=== PATIENT | male | born 1965 | race Caucasian/White ===

== ENCOUNTER 2019-07-01 20:30 | Emergency (ER) | payer BC ==
[2019-07-01 21:19] LABS: ABS Eosinophils 0.1 10^3/ul (0-0.6); ABS Lymphocytes 1.2 10^3/ul (1.0-4.8); ABS Monocytes 0.6 10^3/ul (0-0.8); ABS Neutrophils 3.4 10^3/ul (1.5-7.7); Eosinophil % 1.4 %; Hematocrit 47 % (42-52); Hemoglobin 16.6 g/dL (14.0-18.0); Lymphocyte % 22.4 %; Mean Corpuscular HGB Conc 35 g/dL (31-36); Mean Corpuscular Hemoglobin 32 pg (27-31); Mean Corpuscular Volume 91 fL (80-94); Mean Platelet Volume 7.7 fL (7.4-10.4); Nucleated Red Blood Cells % 0.1; Platelet Count 186 10^3/uL (150-450); Red Blood Count 5.17 10^6 /uL (4.18-5.48); Red Cell Distribution Width 13 % (10-15); White Blood Count 5.3 10^3/uL (3.5-10.8)
[2019-07-01 21:28] LABS: INR 0.89 (0.82-1.09)
[2019-07-01 21:37] LABS: Albumin 4.9 g/dL (3.2-5.2); BUN/Creatinine Ratio 14.6 (8-20); Calcium 9.9 mg/dL (8.6-10.3); EGFR African American 99.1 (>60); EGFR Non-African American 81.9 (>60); Globulin 2.5 g/dL (2-4); Potassium 4.1 mmol/L (3.5-5.0); Total Bilirubin 0.5 mg/dL (0.2-1.0); Total Protein 7.4 g/dL (6.4-8.9)
[2019-07-02 01:50] VITALS: BP 130/86
--- NOTE | 2019-07-02 02:01 | ED ---
HPI Chest Pain - HPI Summary HPI Summary: Patient complains of intermittent chest pressure on left side 1 week. States symptoms do not feel like pain. Chest pressure is intermittent, not related to exertion, random onset, feels like needles. Denies diaphoresis, N/V, SOB, cough , sore throat, trauma, abdominal pain, change in urine, change in BM. Medical history is none. Negative family cardiac history. Nonsmoker. Denies recreational drug use. 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 Onset/Duration: Started Days Ago Timing: Intermittent, Lasting Minutes Initial Severity: Mild Current Severity: None Pain Intensity: 0 Pain Scale Used: 0-10 Numeric Chest Pain Location: Left Anterior Character: Pressure/Squeezing Aggravating Factor(s): Other: - random Alleviating Factor(s): Spontaneous Resolution Associated Signs and Symptoms: Positive: Chest Pain - Risk Factors Pulmonary Embolism Risk Factors: Negative - Allergy/Home Medications Allergies/Adverse Reactions: Allergies Allergy/AdvReac Type Severity Reaction Status Date / Time No Known Allergies Allergy Verified 07/01/19 20:39 Home Medications: Home Medications Ginkgo Biloba [Ginkgo Biloba Extract] 40 mg PO DAILY 09/09/17 [History Confirmed 09/25/17] Glucosamine Sulfate Dipot Chlr [Gnp Glucosamine Maximum S] 1,000 mg PO DAILY [History Confirmed 09/25/17] [place]-3 Fatty Acids/Fish Oil [Fish Oil 1,000 mg Capsule] 1 each PO DAILY [History Confirmed 09/25/17] Multivit-Min/FA/Lycopen/Lutein [Men 50 Plus Multivitamin Tab] 1 tab PO DAILY [History Confirmed 10/04/17] Vitamin E CAP* 800 unit PO DAILY 10/04/17 [History Confirmed 10/04/17] PMH/Surg Hx/FS Hx/Imm Hx Endocrine/Hematology History: Denies: Hx Anticoagulant Therapy Cardiovascular History: Denies: Hx Pacemaker/ICD Respiratory History: Denies: Hx Chronic Obstructive Pulmonary Disease (COPD) History: Denies: Hx Dialysis Sensory History: Denies: Hx Eye Prosthesis Opthamlomology History: Denies: Hx Legally Blind EENT History: Denies: Hx Deafness Infectious Disease History: No Infectious Disease History: Denies: Traveled Outside the [place] in Last 30 Days - Family History Known Family History: Positive: Non-Contributory - Social History Alcohol Use: Daily Alcohol Amount: 1-2 beers Substance Use Type: Reports: None Smoking Status (MU): Never Smoked Tobacco Review of Systems Constitutional: Negative Eyes: Negative ENT: Negative Positive: Chest Pain Respiratory: Negative Gastrointestinal: Negative Genitourinary: Negative Musculoskeletal: Negative Skin: Negative Neurological/Mental Status: Negative Psychological: Normal All Other Systems Reviewed And Are Negative: Yes Physical Exam - Summary Physical Exam Summary: Chest pain nonreproducible. Lung sounds clear to auscultation bilaterally.RRR. Abdomen soft nontender. No peripheral edema. Triage Information Reviewed: Yes Vital Signs On Initial Exam: Initial Vitals Temp Pulse Resp BP Pulse Ox 98.8 F 72 18 176/102 99 07/01/19 20:37 07/01/19 20:37 07/01/19 20:37 07/01/19 20:37 07/01/19 20:37 Vital Signs Reviewed: Yes Appearance: Positive: Well-Appearing Head/Face: Positive: Normal Head/Face Inspection Eyes: Positive: Normal Neck: Positive: Supple Respiratory/Lung Sounds: Positive: Clear to Auscultation Cardiovascular: Positive: Normal Abdomen Description: Positive: Nontender Musculoskeletal: Positive: Normal Neurological: Positive: Normal Psychiatric: Positive: Normal AVPU Assessment: Alert - Fadumo Coma Scale Best Eye Response: 4 - Spontaneous Best Motor Response: 6 - Obeys Commands Best Verbal Response: 5 - Oriented Coma Scale Total: 15 Procedures - Sedation Patient Received Moderate/Deep Sedation with Procedure: No Diagnostics - Vital Signs Vital Signs Temp Pulse Resp BP Pulse Ox 07/02/19 01:45 57 12 130/86 97 07/02/19 01:17 54 16 132/94 100 07/02/19 01:00 52 11 100 07/02/19 00:45 52 17 146/93 100 07/02/19 00:31 18 07/02/19 00:21 16 07/02/19 00:15 158/108 07/01/19 22:48 98.5 F 60 18 125/88 97 07/01/19 20:37 98.8 F 72 18 176/102 99 - Laboratory Lab Results: Lab Results 07/01/19 07/01/19 07/01/19 Range/Units 21:08 21:08 21:08 WBC 5.3 (3.5-10.8) 10^3/uL RBC 5.17 (4.18-5.48) 10^6 /uL Hgb 16.6 (14.0-18.0) g/dL Hct 47 (42-52) % MCV 91 (80-94) fL MCH 32 H (27-31) pg MCHC 35 (31-36) g/dL RDW 13 (10-15) % Plt Count 186 (150-450) 10^3/uL MPV 7.7 (7.4-10.4) fL Neut % (Auto) 63.5 % Lymph % (Auto) 22.4 % [place] % (Auto) 11.8 % Eos % (Auto) 1.4 % Baso % (Auto) 0.9 % Absolute Neuts (auto) 3.4 (1.5-7.7) 10^3/ul Absolute Lymphs (auto) 1.2 (1.0-4.8) 10^3/ul Absolute Monos (auto) 0.6 (0-0.8) 10^3/ul Absolute Eos (auto) 0.1 (0-0.6) 10^3/ul Absolute Basos (auto) 0.0 (0-0.2) 10^3/ul Absolute Nucleated RBC 0.0 10^3/ul Nucleated RBC % 0.1 INR (Anticoag Therapy) 0.89 (0.82-1.09) Sodium 137 (135-145) mmol/L Potassium 4.1 (3.5-5.0) mmol/L Chloride 101 (101-111) mmol/L Carbon Dioxide 28 (22-32) mmol/L Anion Gap 8 (2-11) mmol/L BUN 14 (6-24) mg/dL Creatinine 0.96 (0.67-1.17) mg/dL Est GFR ( Amer) 99.1 (>60) Est GFR (Non-Af Amer) 81.9 (>60) BUN/Creatinine Ratio 14.6 (8-20) Glucose 75 (70-100) mg/dL Calcium 9.9 (8.6-10.3) mg/dL Total Bilirubin 0.50 (0.2-1.0) mg/dL AST 37 (13-39) U/L ALT 34 (7-52) U/L Alkaline Phosphatase 72 (34-104) U/L Troponin I 0.00 (<0.03) ng/mL Total Protein 7.4 (6.4-8.9) g/dL Albumin 4.9 (3.2-5.2) g/dL Globulin 2.5 (2-4) g/dL Albumin/Globulin Ratio 2.0 (1-3) 07/02/19 Range/Units 01:17 WBC (3.5-10.8) 10^3/uL RBC (4.18-5.48) 10^6 /uL Hgb (14.0-18.0) g/dL Hct (42-52) % MCV (80-94) fL MCH (27-31) pg MCHC (31-36) g/dL RDW (10-15) % Plt Count (150-450) 10^3/uL MPV (7.4-10.4) fL Neut % (Auto) % Lymph % (Auto) % [place] % (Auto) % Eos % (Auto) % Baso % (Auto) % Absolute Neuts (auto) (1.5-7.7) 10^3/ul Absolute Lymphs (auto) (1.0-4.8) 10^3/ul Absolute Monos (auto) (0-0.8) 10^3/ul Absolute Eos (auto) (0-0.6) 10^3/ul Absolute Basos (auto) (0-0.2) 10^3/ul Absolute Nucleated RBC 10^3/ul Nucleated RBC % INR (Anticoag Therapy) (0.82-1.09) Sodium (135-145) mmol/L Potassium (3.5-5.0) mmol/L Chloride (101-111) mmol/L Carbon Dioxide (22-32) mmol/L Anion Gap (2-11) mmol/L BUN (6-24) mg/dL Creatinine (0.67-1.17) mg/dL Est GFR ( Amer) (>60) Est GFR (Non-Af Amer) (>60) BUN/Creatinine Ratio (8-20) Glucose (70-100) mg/dL Calcium (8.6-10.3) mg/dL Total Bilirubin (0.2-1.0) mg/dL AST (13-39) U/L ALT (7-52) U/L Alkaline Phosphatase (34-104) U/L Troponin I 0.00 (<0.03) ng/mL Total Protein (6.4-8.9) g/dL Albumin (3.2-5.2) g/dL Globulin (2-4) g/dL Albumin/Globulin Ratio (1-3) Result Diagrams: 07/01/19 21:08 07/01/19 21:08 Lab Statement: Any lab studies that have been ordered have been reviewed, and results considered in the medical decision making process. Chest Pain Course/Dx - Course Course Of Treatment: Patient complains of intermittent chest pressure on left side 1 week. States symptoms do not feel like pain. Chest pressure is intermittent, not related to exertion, random onset, feels like needles. Denies diaphoresis, N/V, SOB, cough, sore throat, trauma, abdominal pain, change in urine, change in BM. Medical history is none. Negative family cardiac history. Nonsmoker. Denies recreational drug use. Vital signs within normal limits. Labs unremarkable. Serial troponins negative. EKG sinus rhythm , heart rate of 76, normal P axis. No prior EKG on file. Patient has follow- up appointment with primary care today. Heart score 1 - Diagnoses Provider Diagnoses: Atypical chest pain Discharge ED - Sign-Out/Discharge Documenting (check all that apply): Patient Departure - Discharge Plan Condition: Stable Disposition: HOME Patient Education Materials: Chest Pain (ED) Referrals: Nilsa Ziegler MD [Primary Care Provider] - Additional Instructions: Take ibuprofen 600 mg every 6 hours for 2 days. Follow-up with primary care for possible further evaluation with cardiology. Return to the ED for any new or worsening symptoms. - Billing Disposition and Condition Condition: STABLE Disposition: Home
== END 2019-07-02 02:28 | disposition home or self-care (01) ==
LOC: ED 20:30
DX: R07.89 Other chest pain (principal); Z79.899 Other long term (current) drug therapy; R94.31 Abnormal electrocardiogram [ECG] [EKG]
CPT/HCPCS: 36415; 80053; 84484; 85025; 85610; 93005; 99282